=== PATIENT | male | born 1950 | race Hispanic/Latino ===

== ENCOUNTER 2022-04-29 23:24 | Emergency (ER) | payer MEDICARE ==
[~2022-04-29] VITALS: Ht 160 cm; Wt 82.6 kg
[~2022-04-29 23:24] MED LIST: ASPI-556 PO; ATEN100T PO; ATOR40TA69 PO; LISI10TA24 PO; MULTIVITAMIN PO
[2022-04-30 01:23] VITALS: BP 151/78
== END 2022-04-30 01:46 | disposition home or self-care (01) ==
LOC: EDH 23:24
DX: R04.0 Epistaxis (principal); E78.00 Pure hypercholesterolemia, unspecified; I10 Essential (primary) hypertension; Z79.82 Long term (current) use of aspirin; Z79.899 Other long term (current) drug therapy
CPT/HCPCS: 36415; 80053; 83735; 85025; 85610; 85730